=== PATIENT | male | born 1950 | race Caucasian/White ===

== ENCOUNTER 2022-12-02 14:40 | Emergency (ER) | payer OTHER ==
[~2022-12-02] VITALS: Ht 190.5 cm; Wt 117.9 kg
[2022-12-02] MEDS ORDERED: JARDIANCE10 MG PO (15:16)
[2022-12-02] MEDS ORDERED: ZESTRIL2.5 MG PO (15:16)
[2022-12-02] MEDS ORDERED: FENOFIBRATE50 MG PO (15:16)
[2022-12-02] MEDS ORDERED: ATORVASTATIN CA10 MG PO (15:17)
[2022-12-02] MEDS ORDERED: GLUMETZA1000 MG PO (15:17)
[2022-12-02] MEDS ORDERED: ACTOS15 MG PO (15:18)
[2022-12-02] MEDS ORDERED: METAXALONE800 MG PO (19:25)
[2022-12-02] MEDS ORDERED: CELEBREX200MG PO (19:25)
[2022-12-02] MEDS ORDERED: MEDROLPACK PO (19:25)
[2022-12-02] MEDS ORDERED: TRAMADOL HCL50 MG PO (19:25)
== END 2022-12-02 19:42 | disposition home or self-care (01) ==
LOC: ER 14:40
DX: M54.50 Low back pain, unspecified (principal); E11.9 Type 2 diabetes mellitus without complications; Z88.0 Allergy status to penicillin; Z88.1 Allergy status to other antibiotic agents; M51.36 Other intervertebral disc degeneration, lumbar region; Z79.84 Long term (current) use of oral hypoglycemic drugs